=== PATIENT | female | born 1955 | race Caucasian/White ===

== ENCOUNTER → 2023-08-24 | Outpatient (CLI) | payer MEDICARE, OTHER | END | disposition home or self-care (01) | LOC: RADMAMWWP 08:31 | DX: Z53.9 Procedure and treatment not carried out, unspecified reason (principal) ==

== ENCOUNTER → 2023-09-04 | Outpatient (CLI) | payer MEDICARE, OTHER ==
--- NOTE | 2023-09-04 10:18 | USB ---
Reason for Exam: Clinical finding. Patient History: Menarche at age 15. Patient has no children. Postmenopausal. 2017, US biopsy breast VAD LT - 2 on the Left side. Paternal aunt had breast cancer at or over age 50. Risk Values: Deb 5 year model risk: 2.2%. NCI Lifetime model risk: 7.9%. Technique: Method: Targeted. Prior Study Comparison: 03/20/2023 Bilateral Screening Mammogram, Unknown. Findings: The area of palpable concern of the left breast, the axilla of the left breast and the retroareolar of the left breast were scanned. Subcutaneous hypoechoic areas noted at the site of clinical concern left 9:00 breast 14 cm from the nipple measuring 1 cm x 0.4 cm. This likely reflects a small sebaceous cyst. There is also an elongated hypoechoic structure within the retroareolar region measuring 1.9 x 8.8 x 0.5 cm felt to reflect a debris-filled duct. Six-month follow-up is recommended. Overall Assessment: Probably benign, BI-RAD 3 Management: Diagnostic Breast Ultrasound of the left breast in 6 months. A clinical breast exam by your physician is recommended on an annual basis and results should be correlated with mammographic findings. This exam should not preclude additional follow-up of suspicious palpable abnormalities. Results were given to the patient verbally at the time of exam. Electronically signed and approved by: Farhan Reeder M.D. Radiologis
--- NOTE | 2023-09-15 11:33 | MM ---
Reason for Exam: Clinical finding. Last screening mammogram was performed 5 month(s) ago. Indicated Problems: Lump or thickening of the left side for 1 Month(s). Patient History: Menarche at age 15. Patient has no children. Postmenopausal. 2017, US biopsy breast VAD LT - 2 on the Left side. Paternal aunt had breast cancer at or over age 50. Risk Values: Deb 5 year model risk: 2.2%. NCI Lifetime model risk: 7.9%. Tissue Density: Left: The breast tissue is heterogeneously dense. This may lower the sensitivity of mammography. Findings: Analyzed By CAD. No distinct mass identified. No suspicious calcifications. Ultrasound recommended for site of clinical concern. Overall Assessment: Incomplete: need additional imaging evaluation, BI-RAD 0 Management: Diagnostic Breast Ultrasound of the left breast. . Results were given to the patient verbally at the time of exam. Patient should continue monthly self-breast exams. A clinical breast exam by your physician is recommended on an annual basis. This exam should not preclude additional follow-up of suspicious palpable abnormalities. Note on Deb scores and lifetime risk: 1. A Deb score greater than 3% is considered moderate risk. If this is the case, consider specialist referral to assess eligibility for a risk reducing agent. 2. If overall lifetime risk for the development of breast cancer is 20% or higher, the patient may qualify for future screening with alternating mammogram and breast MRI. Electronically signed and approved by: Farhan Reeder M.D. Radiologis
== END | disposition home or self-care (01) ==
LOC: RADMAMWWP 08:28
PROVIDERS: ATTEND Internal Medicine
DX: R92.332 Mammographic heterogeneous density, left breast (principal); N63.22 Unspecified lump in the left breast, upper inner quadrant; Z78.0 Asymptomatic menopausal state; Z80.3 Family history of malignant neoplasm of breast
CPT/HCPCS: 77065; 76642; G0279; 77061

== ENCOUNTER → 2024-04-01 | Outpatient (CLI) | payer MEDICARE, OTHER ==
--- NOTE | 2024-04-01 10:01 | USB ---
Reason for Exam: Follow-up at short interval from prior study. Patient History: Menarche at age 15. Patient has no children. Postmenopausal. 2017, US biopsy breast VAD LT - 2 on the Left side. Paternal aunt had breast cancer at or over age 50. Risk Values: Deb 5 year model risk: 2.2%. NCI Lifetime model risk: 7.9%. Technique: Method: Targeted. Prior Study Comparison: 03/20/2023 Bilateral Screening Mammogram, Unknown. 09/04/2023 Left MG 3D diag mammo w/cad LT, [facility]. Findings: The medial section of the breast of the left breast, the axilla of the left breast and the retroareolar of the left breast were scanned. There is a persistent hypoechoic area with posterior wall enhancement measuring 2.1 x 0.5 cm near the nipple present previously. Previous measurement 1.9 cm. Debris-filled duct remains within the differential. Follow-up in 6 months is recommended. Previous subcutaneous sebaceous cyst has significantly diminished in size over the interval currently measures 0.2 x 0.2 cm located 14 cm o'clock position. Overall Assessment: Probably benign, BI-RAD 3 Management: Diagnostic Mammogram of both breasts in 6 months. Diagnostic Breast Ultrasound of the left breast in 6 months. A clinical breast exam by your physician is recommended on an annual basis and results should be correlated with mammographic findings. This exam should not preclude additional follow-up of suspicious palpable abnormalities. Results were given to the patient verbally at the time of exam. Electronically signed and approved by: Arjun Bobo D.O. Radiologis
== END | disposition home or self-care (01) ==
LOC: RADUSWWP 09:20
PROVIDERS: ATTEND Family Medicine
DX: N63.22 Unspecified lump in the left breast, upper inner quadrant (principal); Z78.0 Asymptomatic menopausal state; Z80.3 Family history of malignant neoplasm of breast

== ENCOUNTER → 2025-01-02 | Outpatient (CLI) | payer MEDICARE, OTHER ==
--- NOTE | 2025-01-02 10:53 | MM ---
Reason for Exam: Additional evaluation requested from prior study. Last mammogram was performed 1 year(s) and 9 month(s) ago. Patient History: Menarche at age 15. Patient has no children. Postmenopausal. 2017, US biopsy breast VAD LT - 2 on the Left side. Paternal aunt had breast cancer at or over age 50. Risk Values: Deb 5 year model risk: 2.2%. NCI Lifetime model risk: 7.6%. Prior Study Comparison: 03/20/2023 Bilateral Screening Mammogram, Unknown. 09/04/2023 Left MG 3D diag mammo w/cad LT, [facility]. 09/04/2023 Left US breast limited LT, [facility]. 04/01/2024 Left US breast limited LT, [facility]. Tissue Density: The breasts are heterogeneously dense, which may obscure small masses. Findings: Analyzed By CAD. A biopsy clip marker in the left breast. Benign-appearing calcification. There is a oval nodule in the upper outer margin of the right breast measuring 11 mm an approximately 3 cm from the nipple. There is a smaller punctate nodules in the left breast compatible with chronic nodularity unchanged in appearance. Overall Assessment: Incomplete: need additional imaging evaluation, BI-RAD 0 Management: Diagnostic Breast Ultrasound of both breasts. . Results were given to the patient verbally at the time of exam. Patient should continue monthly self-breast exams. A clinical breast exam by your physician is recommended on an annual basis. This exam should not preclude additional follow-up of suspicious palpable abnormalities. Note on Deb scores and lifetime risk: 1. A Deb score greater than 3% is considered moderate risk. If this is the case, consider specialist referral to assess eligibility for a risk reducing agent. 2. If overall lifetime risk for the development of breast cancer is 20% or higher, the patient may qualify for future screening with alternating mammogram and breast MRI. [facility], , 01/02/2025 10:50 AM. Electronically signed and approved by: Miguel Taylor M.D. Radiologis
--- NOTE | 2025-01-02 11:36 | USB ---
Reason for Exam: Additional evaluation requested from prior study. Patient History: Menarche at age 15. Patient has no children. Postmenopausal. 2017, US biopsy breast VAD LT - 2 on the Left side. Paternal aunt had breast cancer at or over age 50. Risk Values: Deb 5 year model risk: 2.2%. NCI Lifetime model risk: 7.6%. Technique: Method: Targeted. Prior Study Comparison: 03/20/2023 Bilateral Screening Mammogram, Unknown. 09/04/2023 Left MG 3D diag mammo w/cad LT, [facility]. Findings: The upper outer quadrant of the right breast, the medial section of the breast of the left breast, the axilla of both breasts and the retroareolar of both breasts were scanned. A complete US of lower quadrant right breast and left breast 9:00 and axilla, retro-areolar region were reviewed. No solid or cystic masses are identified. There is a benign-appearing cyst in the right breast corresponding to the mammographic abnormality measuring 10 x 5 mm. In the area of previously noted adjacent to the left nipple there is a 1.6 x 0.5 cm nodule is slightly reduced in size previously measuring 2.1 cm. Previously noted sebaceous cyst is no longer seen.. Overall Assessment: Benign, BI-RAD 2 Management: Diagnostic Mammogram of both breasts in 6 months. A clinical breast exam by your physician is recommended on an annual basis and results should be correlated with mammographic findings. This exam should not preclude additional follow-up of suspicious palpable abnormalities. Results were given to the patient verbally at the time of exam. [facility], , 01/02/2025 11:33 AM. Electronically signed and approved by: Miguel Taylor M.D. Radiologis
== END | disposition home or self-care (01) ==
LOC: RADMAMWWP 11-04 12:52
PROVIDERS: ATTEND Family Medicine
DX: R92.8 Other abnormal and inconclusive findings on diagnostic imaging of breast (principal); R93.89 Abnormal findings on diagnostic imaging of other specified body structures; R92.2 Inconclusive mammogram; N63.22 Unspecified lump in the left breast, upper inner quadrant; R92.333 Mammographic heterogeneous density, bilateral breasts; Z78.0 Asymptomatic menopausal state; Z80.3 Family history of malignant neoplasm of breast
CPT/HCPCS: 77066; 76642; G0279; 77062